=== PATIENT | male | born 1960 | race Caucasian/White ===

== ENCOUNTER → 2020-04-04 | Emergency (ER) | payer BC ==
[~2020-04-04] VITALS: Ht 175.3 cm; Wt 93.4 kg
--- NOTE | 2020-04-04 07:45 | NUR ---
BED 7 PT BIB SELF C/O OF EAR PAIN 12/19. NO ASSOCIATED HEADACHES, OR DIZZINESS, OR LOSS OF CONSCIOUSNESS. VS CHECKED. AWAITING MD ESTRADA.
[2020-04-04 08:18] VITALS: BP 135/74
== END | disposition home or self-care (01) ==
LOC: ER 07:43
DX: H60.91 Unspecified otitis externa, right ear (principal); I10 Essential (primary) hypertension; E11.9 Type 2 diabetes mellitus without complications; F17.200 Nicotine dependence, unspecified, uncomplicated

== ENCOUNTER 2024-07-24 10:43 | Emergency (ER) | payer BC ==
[~2024-07-24] VITALS: Ht 175.3 cm; Wt 100.2 kg
[2024-07-24 11:47] LABS: BASOPHILS # (AUTO) 0.1 K/uL (0.0-0.2); BASOPHILS % (AUTO) 0.6 % (0.0-2.0); HEMATOCRIT 44 % (39-51); HEMOGLOBIN 14.7 g/dL (13.5-17.5); MEAN CORPUSCULAR HEMOGLOBIN 28 PG (26.0-33.0); MEAN CORPUSCULAR HGB CONC 33 g/dl (31.0-36.0); MEAN CORPUSCULAR VOLUME 84 fL (80-96); MONOCYTES # (AUTO) 0.6 K/uL (0.1-1.30); MONOCYTES % (AUTO) 4.6 % (2.0-12.0); NEUTROPHILS # (AUTO) 10.7 K/uL (1.8-8.9); NEUTROPHILS % (AUTO) 86.8 % (43.0-81.0); PLATELET COUNT (AUTO) 268 K/uL (150-450); RED BLOOD CELL COUNT(AUTO) 5.26 MIL/uL (4.5-6.0); RED CELL DISTRIBUTION WIDTH 14.7 % (11.5-15.0); WHITE BLOOD COUNT (AUTO) 12.3 K/uL (4.3-11.0)
[2024-07-24 12:00] LABS: CALCIUM, SERUM 8.9 mg/dL (8.5-10.1); CARBON DIOXIDE 24 mmol/L (21-32); CHLORIDE 101 mmol/L (98-107); GLUCOSE 345 mg/dL (74-106); POTASSIUM 5.1 mmol/L (3.5-5.1); SODIUM SERUM 137 mmol/L (136-145); UREA NITROGEN, BLOOD 40 mg/dL (7-18)
[2024-07-24 12:05] LABS: ALANINE AMINOTRANSFERASE 24 U/L (12-78); ALBUMIN 2.9 g/dL (3.4-5.0); ALKALINE PHOSPHATASE 93 U/L (46-116); ASPARTATE AMINOTRANSFERASE 15 U/L (15-37); BILIRUBIN,DIRECT 0.2 mg/dL (0.0-0.2); BILIRUBIN,TOTAL 0.7 mg/dL (0.2-1.0); LIPASE 47 U/L (16-77); TOTAL PROTEIN, SERUM 7.1 g/dL (6.4-8.2)
[2024-07-24] MEDS ORDERED: ONDANSETRON HCL/PF 4 MG/2 ML VIAL ONE (12:25)
[2024-07-24] MEDS ORDERED: KETOROLAC TROMETHAMINE 15 MG/ML VIAL ONE (12:25)
[2024-07-24] MEDS ORDERED: MORPHINE SULFATE INJ 4 MG/ML DISP.SYRIN ONE (12:25)
[2024-07-24] MEDS: IV NS 0.9% 1,000 ML BAG IV ONE ×2 (12:33→15:15)
[2024-07-24] MEDS: ONDANSETRON HCL/PF 4 MG/2 ML VIAL IV ONE (12:33)
[2024-07-24] MEDS: KETOROLAC TROMETHAMINE 15 MG/ML VIAL IV ONE (12:33)
[2024-07-24] MEDS: MORPHINE SULFATE INJ 2 MG/ML DISP.SYRIN IV ONE (12:33)
[2024-07-24] MEDS ORDERED: AMLO-212 PO (13:38)
[2024-07-24] MEDS ORDERED: INSU100I30 SQ (13:38)
[2024-07-24] MEDS ORDERED: CLOP75TA15 PO (13:38)
[2024-07-24] MEDS ORDERED: CYAN100096 PO (13:38)
[2024-07-24] MEDS ORDERED: GLIP10TA11 PO (13:38)
[2024-07-24] MEDS ORDERED: ERGO500093 PO (13:38)
[2024-07-24] MEDS ORDERED: DEXL60CA3 PO (13:38)
[2024-07-24] MEDS ORDERED: INSU100V36 SQ (13:38)
[2024-07-24] MEDS ORDERED: ATOR40TA PO (13:38)
[2024-07-24] MEDS ORDERED: FURO-145 PO (13:38)
[2024-07-24] MEDS ORDERED: LISI-768 PO (13:38)
[2024-07-24] MEDS ORDERED: CEFTRIAXONE 1GM BAG (ER ONLY) 50 ML IV ONE (15:15)
[2024-07-24] MEDS: CEFTRIAXONE 1GM BAG (ER ONLY) 50 ML IV ONE (15:15)
[2024-07-24 15:21] LABS: LACTIC ACID 2.4 mmol/L (0.4-2.0)
[2024-07-24] MEDS ORDERED: CEPH-570 PO (17:22)
[2024-07-24 17:47] VITALS: BP 141/80; TEMP 98.7; O2SAT 99
== END 2024-07-24 17:47 | disposition left against medical advice (07) ==
LOC: ER 10:54
DX: N13.2 Hydronephrosis with renal and ureteral calculous obstruction (principal); A41.9 Sepsis, unspecified organism; E11.51 Type 2 diabetes mellitus with diabetic peripheral angiopathy without gangrene; F17.200 Nicotine dependence, unspecified, uncomplicated; I11.9 Hypertensive heart disease without heart failure; K59.00 Constipation, unspecified; N17.9 Acute kidney failure, unspecified; R65.20 Severe sepsis without septic shock; Z79.02 Long term (current) use of antithrombotics/antiplatelets; Z79.4 Long term (current) use of insulin; Z79.84 Long term (current) use of oral hypoglycemic drugs; Z79.899 Other long term (current) drug therapy; Z87.442 Personal history of urinary calculi; Z88.0 Allergy status to penicillin
CPT/HCPCS: 99291; 74176; 96365; 96375; 96361; 93005 ×2; 71045; 85025; 80048; 87040 ×2; 83605; 83690; 80076; 36415; 84484 ×2; J1885; J2270; J2405; J7030 ×2; J0696